=== PATIENT | female | born 1955 | race Caucasian/White ===

== ENCOUNTER → 2017-10-22 | Outpatient (CLI) | payer OTHER ==
[~2017-10-22] MED LIST: CALCIUM 600 +1 EAC1 PO; CELEXA20 MG PO; CENTRUM SILVER1 EAC4 PO; FARXIGA10 MG PO; FLEXERIL PO; FOSAMAX 70 MG T70 MG PO; LIPITOR10 MG PO; MAGNESIUM PO; METFORMIN HCL500 MG PO; MS CONTIN15 MG PO; PERCOCET PO
== END ==
LOC: M.RAD 15:46
DX: Z13.820 Encounter for screening for osteoporosis (principal); M81.0 Age-related osteoporosis without current pathological fracture; Z78.0 Asymptomatic menopausal state

== ENCOUNTER → 2020-12-01 | Outpatient (CLI) | payer OTHER | LOC: M.RAD 15:48 | PROVIDERS: ATTEND Nurse Practitioner Women's Health | DX: M85.88 Other specified disorders of bone density and structure, other site (principal); M81.0 Age-related osteoporosis without current pathological fracture ==

== ENCOUNTER 2020-12-08 12:57 | Inpatient (IN) | payer OTHER, MEDICARE ==
[~2020-12-08] VITALS: Ht 167.6 cm; Wt 107.1 kg
--- NOTE | ~2020-12-08 | EEG ---
[address] [address] EEG STUDY REPORT Name: FRANDY BELLO Room: [address] IN M.R.#: [id number] Admission: 12/08/20 Attend Phys: Mary Lou Fierro MD Discharge: Date of : 51 Report #: [id number] THIS REPORT FOR: cc: Nadiya De Paz MD, Katrina MD ~ Eliceo Bell MD DATE OF SERVICE: 12/13/2020 EEG REPORT This patient is being evaluated for hypoxic encephalopathy. EEG was done by placing the electrode by standard 10-20 system of electrode placement. Both referential and sequential montages were used for recording. The patient's EEG demonstrates burst suppression pattern. Photic stimulation is unremarkable. IMPRESSION: This patient's EEG demonstrate finding consistent with burst suppression pattern. If it is because of hypoxic encephalopathy, that typically indicate a bad prognosis for neurological recovery. One study has questioned that, but that study is not universally accepted. The patient is on sedation and it will be desirable to do another EEG without sedation whenever it can be done. Thank you very much for this referral. By: [id number] [id number] Bell MD /nt
[2020-12-08 13:16] VITALS: BP 124/41
[2020-12-08] MEDS ORDERED: PROLIA60 MG/1 ML SUBQ (13:35)
[2020-12-08] MEDS ORDERED: NAPROSYN500 M1 PO (13:36)
[2020-12-08] MEDS ORDERED: JARDIANCE25 MG PO (13:37)
[2020-12-08] MEDS ORDERED: NEURONTIN 300M300 M2 PO (13:37)
[2020-12-08 13:39] LABS: ABSOLUTE LYMPHOCYTES 0.7 thou/uL (0.8-5.3); HEMATOCRIT 30.3 % (37.0-47.0); HEMOGLOBIN 9.2 gm/dL (12.0-15.0); MCH 21.4 pg (26.0-34.0); RBC 4.29 mil/uL (4.20-5.00)
[2020-12-08 13:41] LABS: ABSOLUTE BASOPHILS 0.1 thou/uL (0.0-0.2); ABSOLUTE EOSINOPHILS 0.1 thou/uL (0.0-0.7); ABSOLUTE MONOCYTES 0.8 thou/uL (0.0-1.2); ABSOLUTE NEUTROPHILS 8.8 thou/uL (1.6-8.1); BASOPHILS 0.7 %; MCHC 30.2 g/dL (28.0-37.0); MCV 70.7 fL (80.0-100.0); MONOCYTES 7.2 %; MPV 6.8 fl. (7.2-11.1); NUCLEATED RBCS 0 /100WBC; PLATELET COUNT* 468 thou/uL (150-400); POLYS 84.1 %; RDW-CV 20.6 % (10.5-14.5); WBC 10.5 thou/uL (4.0-11.0)
[2020-12-08 14:02] LABS: CALCIUM 10.2 mg/dL (8.5-10.1); CREATININE 1.5 mg/dL (0.6-1.3); POTASSIUM 4.6 mmol/L (3.5-5.1)
[2020-12-08 14:07] LABS: ALBUMIN 3.6 g/dL (3.4-5.0); TOTAL BILIRUBIN 0.5 mg/dL (<0.1-1.0); TOTAL PROTEIN 8.3 g/dL (6.4-8.2)
[2020-12-08 14:23] VITALS: BP 136/59
--- NOTE | 2020-12-08 16:17 | EKG ---
[place] [address] ELECTROCARDIOGRAM REPORT Name: FRANDY BELLO Room: [place] [address] ADM IN .R.#: [id number] Admission: 12/08/20 Attend Phys: Mary Lou Fierro MD Discharge: Date of : 51 Date of Service: 12/08/20 1338 Report #: [id number] THIS REPORT FOR: //name// [facility] ED Test Date: 2020-12-08 Test Time: 13:38:06 Pat Name: FRANDY BELLO Department: Room: [facility] Gender: F Concrete Pointer: MIKE : 1955 Requested By: Chilango Rodriguez Order Number: [id number] MD: Alexandre Rice Measurements Intervals [place] Rate: 71 P: 36 [place]: 183 QRS: 9 QRSD: 92 T: 20 QT: 409 QTc: 445 Interpretive Statements Sinus rhythm Low voltage, precordial leads No previous ECG available for comparison Electronically Signed On 12-08-2020 16:17:19 CDT by Alexandre Rice [email or web address] <ELECTRONICALLY SIGNED> By: Alexandre Rice MD, [facility] 12/08/20 1617 1338 1338 Alexandre Rice MD, [facility] /EPI
[2020-12-08 19:03] VITALS: BP 126/50
[2020-12-08 19:30] VITALS: BP 118/47
[2020-12-08 23:51] VITALS: BP 96/56
[2020-12-09 04:27] LABS: HEMOGLOBIN 7.8 gm/dL (12.0-15.0); MCH 21.5 pg (26.0-34.0); MCHC 30.2 g/dL (28.0-37.0); MCV 71.1 fL (80.0-100.0); MPV 6.5 fl. (7.2-11.1); RBC 3.65 mil/uL (4.20-5.00); RDW-CV 20.4 % (10.5-14.5)
[2020-12-09 04:42] VITALS: BP 104/47
[2020-12-09 04:55] LABS: CALCIUM 9.2 mg/dL (8.5-10.1); CREATININE 1.3 mg/dL (0.6-1.3); POTASSIUM 3.8 mmol/L (3.5-5.1)
[2020-12-09 08:00] VITALS: BP 100/47
[2020-12-09 15:22] VITALS: BP 96/31
[2020-12-09 15:24] VITALS: BP 106/44
--- NOTE | 2020-12-09 16:03 | OP ---
[address] [address] OPERATIVE REPORT Name: FRANDY BELLO Room: [address] IN .R.#: [id number] Admission: 12/08/20 Attend Phys: Mary Lou Fierro MD Discharge: Date of : 51 Report #: [id number] THIS REPORT FOR: cc: Nadiya De Paz MD, Katrina MD ~ Tommy Mcgrath DO DATE OF SERVICE: 12/08/2020 PREOPERATIVE DIAGNOSIS: Open bimalleolar fracture of the right ankle with osteoporosis and open medial side of the ankle. POSTOPERATIVE DIAGNOSIS: Bimalleolar fracture of the right ankle with osteoporosis and open medial side of the ankle. SURGERY PERFORMED: Application of [place] external fixator to the right lower extremity and medial side incision, debridement, irrigation of the open fracture site with a temporary pinning of the medial malleolus fragment. SURGEON: Tommy Mcgrath DO LUMBER CHAIN OFFBEARER: Ros Lentz. SECOND COLLEGE DEAN: Ramin Alberts. ANESTHESIA: General. The patient did receive Ancef 2 grams IV piggyback preoperatively in Emergency Room. SPECIMENS: She has no specimens. COMPLICATIONS: None. ESTIMATED BLOOD LOSS: 10 mL. GROSS FINDINGS: Prior to surgery, the patient had a significantly displaced open medial malleolus fracture with the open aspect, was category 2 open fracture. She did demonstrate intraoperatively to show that the fracture would not reduce because of the medial malleolus fracture fragment was totally inverted and rotated 90 degrees. Post-reduction of this fracture fragment, the patient had a good ankle mortise on presentation on the radiographs. SURGERY IN DETAIL: The patient was taken to the operating room and placed on table. We gave her the benefit of general anesthetic. The patient's surgery continued with a Hibiclens scrub and chlorhexidine prep and sterile draping for right lower extremity surgery. A time-out was called and verified by everyone in the room for the right ankle. Surgery began [place] [address] OPERATIVE REPORT Name: BELLOFRANDY Room: [address] IN [facility].#: [id number] Admission: 12/08/20 Attend Phys: Mary Lou Fierro MD Discharge: Date of : 51 Report #: [id number] incision over the medial malleolus open fracture site through skin and subcutaneous tissues, a 10 blade scalpel. That medial malleolus fracture fragment was inverted and rotated as stated above. The periosteum went within the joint as well and held this, and the fracture fragment would not let the ankle reduce. At this point in time, the fracture area was copiously irrigated with normal saline. At this point in time, I did put a temporary stabilizing K-wire pin in this fracture fragment to hold into position now. Secondarily now, I went ahead and placed 2 proximal Schanz pins across the tibia for the external fixator after I made small stab incisions with a 15 blade scalpel, bluntly dissected down to the tibia verifying the pin placement with C-arm on AP and lateral views. Next, I went through the calcaneal pin and made a small medial incision. After I found the appropriate site to place the calcaneal pin, it was drilled across the calcaneus without any difficulty. The Bard 2 pin clamps were now applied and I did take temporarily tightened out the proximal aspect of the Ex-Fix using traction on the leg getting down to the appropriate position. I then tightened all the distal bar to clamp pins. Ex-Fix looked in good position. I did go ahead and tighten all final tightening of all screws and clamps at this stage. I now went ahead and went back to the ankle side and I copiously irrigated one more time prior to closure that periosteum and inverted material along with the capsule was closed with 1 simple stitch of Monocryl to close that open area. Subcutaneous with 2-0 Monocryl with a running 3-0 nylon on the skin. Xeroform, 4 x 4's, Kerlix dressing was applied across the ankle. A small K-wire pin was cut external to the skin and bent, well-padded with Xeroform as well. I did put a kickstand on the Ex-Fix to her calcaneal or heel would not rest upon the bed, giving her sore across that area. One sharp end of the calcaneal pin was cut and then a cap was placed over it. The patient at this time was transferred up and taken to recovery room in stable condition. I attest I was present for all critical aspects of surgery. Needle, instrument, sponge counts correct. <ELECTRONICALLY SIGNED> By: Tommy Mcgrath DO 12/09/20 1603 1724 1809Tommy Mcgrath DO /evita
[2020-12-09 20:00] VITALS: BP 109/45
[2020-12-09 23:35] VITALS: BP 128/59
[2020-12-10 02:06] LABS: GLYCOHEMOGLOBIN (HGB A1C) 7.6 % (4.8-5.6)
[2020-12-10 04:00] VITALS: BP 114/42
[2020-12-10 04:24] LABS: HEMATOCRIT 25.3 % (37.0-47.0); HEMOGLOBIN 7.6 gm/dL (12.0-15.0); MCH 21.4 pg (26.0-34.0); MCHC 29.9 g/dL (28.0-37.0); MCV 71.4 fL (80.0-100.0); MPV 6.1 fl. (7.2-11.1); RBC 3.55 mil/uL (4.20-5.00); RDW-CV 20.8 % (10.5-14.5); WBC 8.2 thou/uL (4.0-11.0)
[2020-12-10 04:39] LABS: CALCIUM 8.7 mg/dL (8.5-10.1); CREATININE 1.7 mg/dL (0.6-1.3); POTASSIUM 4.4 mmol/L (3.5-5.1)
[2020-12-10 06:16] LABS: URINE BILIRUBIN NEGATIVE (Negative); URINE BLOOD 3+ (Negative); URINE CLARITY CLEAR; URINE COLOR YELLOW; URINE GLUCOSE-RANDOM 3+ (Negative); URINE KETONES NEGATIVE (Negative); URINE LEUKOCYTES-REFLEX 1+ (Negative); URINE NITRITE-REFLEX NEGATIVE (Negative); URINE PROTEIN TRACE (Negative); URINE SPECIFIC GRAVITY 1.015 (1.005-1.030); URINE UROBILINOGEN 0.2 E.U./dl (0.2-1.0)
[2020-12-10 08:05] VITALS: BP 121/49
[2020-12-10 08:41] LABS: BACTERIA-REFLEX 1-9 Few /HPF (None Seen); CASTS None Seen /LPF (None Seen); CRYSTALS None Seen /LPF (None Seen); MUCUS None Seen strn/LPF (None Seen); SQUAMOUS 4-10 Moderate /LPF (0-3); URINE RBC >20 Many /HPF (0-2); URINE WBC-REFLEX 6-15 Few /HPF (0-5)
[2020-12-10 16:00] VITALS: BP 98/34
[2020-12-10 16:34] VITALS: BP 121/49
[2020-12-10 20:44] VITALS: BP 113/43
[2020-12-11] VITALS (86 sets, daily range): BP systolic 66–193; BP diastolic 26–101
[2020-12-11 04:52] LABS: HEMATOCRIT 27.7 % (37.0-47.0); HEMOGLOBIN 8.4 gm/dL (12.0-15.0); MCH 21.6 pg (26.0-34.0); MCHC 30.2 g/dL (28.0-37.0); MCV 71.4 fL (80.0-100.0); MPV 6.4 fl. (7.2-11.1); RBC 3.89 mil/uL (4.20-5.00); RDW-CV 21.2 % (10.5-14.5); WBC 10.3 thou/uL (4.0-11.0)
[2020-12-11 04:55] LABS: CALCIUM 9.1 mg/dL (8.5-10.1); CREATININE 1.3 mg/dL (0.6-1.3); POTASSIUM 4.6 mmol/L (3.5-5.1)
[2020-12-11 14:27] LABS: CREATININE 1.6 mg/dL (0.6-1.3); POTASSIUM 4.1 mmol/L (3.5-5.1)
[2020-12-11 14:31] LABS: APTT 24.8 Seconds (25.0-31.3); INR 1.3; PROTIME 13.9 Seconds (9.20-11.50)
[2020-12-11 15:28] LABS: BE -2.5 mmol/L (-2 to +3); PCO2 37.3 mmHg (35.0-45.0)
[2020-12-11 15:30] LABS: PO2 203.1 mmHg (75.0-100.0)
[2020-12-11 17:00] LABS: HEMATOCRIT 27.3 % (37.0-47.0); HEMOGLOBIN 8.1 gm/dL (12.0-15.0); MCH 21.1 pg (26.0-34.0); MCHC 29.6 g/dL (28.0-37.0); MCV 71.1 fL (80.0-100.0); MPV 6.4 fl. (7.2-11.1); NUCLEATED RBCS 0 /100WBC; PLATELET COUNT* 402 thou/uL (150-400); RBC 3.84 mil/uL (4.20-5.00); RDW-CV 21.1 % (10.5-14.5); WBC 11.5 thou/uL (4.0-11.0)
[2020-12-11 17:10] LABS: INR 1.3; PROTIME 13.9 Seconds (9.20-11.50)
[2020-12-11 17:35] LABS: CALCIUM 9.9 mg/dL (8.5-10.1); CREATININE 1.3 mg/dL (0.6-1.3); PHOSPHORUS* 2.3 mg/dL (2.5-4.9); POTASSIUM 4.4 mmol/L (3.5-5.1)
[2020-12-11 17:38] LABS: ABSOLUTE EOSINOPHILS 0.1 thou/uL (0.0-0.7); ABSOLUTE LYMPHOCYTES 0.3 thou/uL (0.8-5.3); ABSOLUTE MONOCYTES 0.7 thou/uL (0.0-1.2); ABSOLUTE NEUTROPHILS 10.4 thou/uL (1.6-8.1); PLATELET ESTIMATE INCREASED
[2020-12-11 17:40] LABS: ANISOCYTOSIS 2+; HYPOCHROMASIA 2+; MICROCYTES 2+; POLYCHROMASIA Occasional
[2020-12-11 22:49] LABS: ABSOLUTE EOSINOPHILS 0.1 thou/uL (0.0-0.7); ABSOLUTE LYMPHOCYTES 0.8 thou/uL (0.8-5.3); ABSOLUTE MONOCYTES 1.1 thou/uL (0.0-1.2); ABSOLUTE NEUTROPHILS 12.2 thou/uL (1.6-8.1); BASOPHILS 0.1 %; EOSINOPHILS 0.5 %; HEMATOCRIT 29.7 % (37.0-47.0); HEMOGLOBIN 8.8 gm/dL (12.0-15.0); LYMPHOCYTES 5.5 %; MCH 21.1 pg (26.0-34.0); MCHC 29.6 g/dL (28.0-37.0); MCV 71.4 fL (80.0-100.0); MONOCYTES 7.7 %; MPV 6.3 fl. (7.2-11.1); NUCLEATED RBCS 0 /100WBC; POLYS 86.2 %; RBC 4.15 mil/uL (4.20-5.00); RDW-CV 21.1 % (10.5-14.5); WBC 14.1 thou/uL (4.0-11.0)
[2020-12-11 22:50] LABS: PLATELET COUNT* 485 thou/uL (150-400)
[2020-12-11 23:08] LABS: APTT 29.1 Seconds (25.0-31.3); INR 1.3; PROTIME 13.6 Seconds (9.20-11.50)
[2020-12-11 23:09] LABS: CALCIUM 9.2 mg/dL (8.5-10.1); CK-MB MASS 8.9 ng/mL (<0.5-3.6); CREATININE 1.2 mg/dL (0.6-1.3); MAGNESIUM 1.8 mg/dL (1.8-2.4); PHOSPHORUS* 2.9 mg/dL (2.5-4.9); POTASSIUM 4.6 mmol/L (3.5-5.1); TROPONIN-I LEVEL 0.58 ng/mL (<0.06)
[2020-12-12] VITALS (72 sets, daily range): BP systolic 52–186; BP diastolic 25–85
[2020-12-12 01:29] LABS: ANTI-Xa-UNFRACTIONATED HEP 7.459; BE -5.4 mmol/L (-2 to +3); pH 7.397 (7.340-7.450)
[2020-12-12 01:33] LABS: PO2 133.7 mmHg (75.0-100.0)
[2020-12-12 04:34] LABS: ABSOLUTE EOSINOPHILS 0.1 thou/uL (0.0-0.7); ABSOLUTE LYMPHOCYTES 0.5 thou/uL (0.8-5.3); ABSOLUTE MONOCYTES 0.7 thou/uL (0.0-1.2); ABSOLUTE NEUTROPHILS 9.1 thou/uL (1.6-8.1); BASOPHILS 0.3 %; EOSINOPHILS 0.7 %; HEMOGLOBIN 8.2 gm/dL (12.0-15.0); LYMPHOCYTES 5.2 %; MCH 21.3 pg (26.0-34.0); MCHC 30.5 g/dL (28.0-37.0); MCV 69.8 fL (80.0-100.0); MONOCYTES 6.7 %; MPV 6.2 fl. (7.2-11.1); NUCLEATED RBCS 0 /100WBC; POLYS 87.1 %; RBC 3.87 mil/uL (4.20-5.00); RDW-CV 21.1 % (10.5-14.5); WBC 10.4 thou/uL (4.0-11.0)
[2020-12-12 04:41] LABS: PLATELET COUNT* 406 thou/uL (150-400)
[2020-12-12 04:49] LABS: APTT 29.1 Seconds (25.0-31.3); INR 1.4; PROTIME 14.5 Seconds (9.20-11.50)
[2020-12-12 05:01] LABS: CREATININE 0.9 mg/dL (0.6-1.3); MAGNESIUM 1.6 mg/dL (1.8-2.4); PHOSPHORUS* 1.3 mg/dL (2.5-4.9)
[2020-12-12 05:03] LABS: POTASSIUM 3.4 mmol/L (3.5-5.1)
[2020-12-12 05:35] LABS: ANTI-Xa-UNFRACTIONATED HEP 7.555; BE -4.8 mmol/L (-2 to +3); pH 7.497 (7.340-7.450)
[2020-12-12 10:24] LABS: BE -5.6 mmol/L (-2 to +3); PCO2 40.7 mmHg (35.0-45.0); PO2 106.1 mmHg (75.0-100.0); pH 7.314 (7.340-7.450)
[2020-12-12 11:03] LABS: HEMOGLOBIN 7.7 gm/dL (12.0-15.0); MCHC 29.5 g/dL (28.0-37.0); MCV 71.2 fL (80.0-100.0); MPV 6.3 fl. (7.2-11.1); NUCLEATED RBCS 0 /100WBC; PLATELET COUNT* 364 thou/uL (150-400); RBC 3.65 mil/uL (4.20-5.00); RDW-CV 21.2 % (10.5-14.5); WBC 8.6 thou/uL (4.0-11.0)
[2020-12-12 11:09] LABS: CALCIUM 8.5 mg/dL (8.5-10.1); CREATININE 0.9 mg/dL (0.6-1.3); POTASSIUM 3.4 mmol/L (3.5-5.1)
[2020-12-12 11:16] LABS: APTT 28.4 Seconds (25.0-31.3); INR 1.3; PROTIME 13.7 Seconds (9.20-11.50)
[2020-12-12 11:21] LABS: MAGNESIUM 2.1 mg/dL (1.8-2.4); PHOSPHORUS* 2.4 mg/dL (2.5-4.9)
[2020-12-12 11:34] LABS: ABSOLUTE EOSINOPHILS 0.1 thou/uL (0.0-0.7); ABSOLUTE LYMPHOCYTES 0.1 thou/uL (0.8-5.3); ABSOLUTE MONOCYTES 0.5 thou/uL (0.0-1.2); ABSOLUTE NEUTROPHILS 7.9 thou/uL (1.6-8.1); METAMYELOCYTES 1 %
[2020-12-12 11:35] LABS: ANISOCYTOSIS 2+; HYPOCHROMASIA 2+; MICROCYTES 1+
[2020-12-12 11:36] LABS: PLATELET ESTIMATE ADEQUATE; POLYCHROMASIA Occasional
[2020-12-12 18:04] LABS: ABSOLUTE EOSINOPHILS 0.1 thou/uL (0.0-0.7); ABSOLUTE LYMPHOCYTES 0.4 thou/uL (0.8-5.3); ABSOLUTE MONOCYTES 0.6 thou/uL (0.0-1.2); BASOPHILS 0.3 %; EOSINOPHILS 1.7 %; HEMATOCRIT 23.6 % (37.0-47.0); HEMOGLOBIN 7.2 gm/dL (12.0-15.0); LYMPHOCYTES 4.7 %; MCH 21.6 pg (26.0-34.0); MCHC 30.5 g/dL (28.0-37.0); MONOCYTES 7.2 %; MPV 6.2 fl. (7.2-11.1); NUCLEATED RBCS 0 /100WBC; PLATELET COUNT* 298 thou/uL (150-400); POLYS 86.1 %; RBC 3.33 mil/uL (4.20-5.00); RDW-CV 20.8 % (10.5-14.5); WBC 8.2 thou/uL (4.0-11.0)
[2020-12-12 18:17] LABS: CALCIUM 7.9 mg/dL (8.5-10.1); CREATININE 0.9 mg/dL (0.6-1.3); MAGNESIUM 1.6 mg/dL (1.8-2.4); PHOSPHORUS* 2.4 mg/dL (2.5-4.9); POTASSIUM 3.9 mmol/L (3.5-5.1)
[2020-12-12 18:22] LABS: APTT 28.2 Seconds (25.0-31.3); INR 1.3; PROTIME 13.4 Seconds (9.20-11.50)
[2020-12-13] VITALS (73 sets, daily range): BP systolic 38–147; BP diastolic 28–68
[2020-12-13 04:35] LABS: ABSOLUTE EOSINOPHILS 0.3 thou/uL (0.0-0.7); ABSOLUTE LYMPHOCYTES 0.4 thou/uL (0.8-5.3); ABSOLUTE MONOCYTES 0.7 thou/uL (0.0-1.2); ABSOLUTE NEUTROPHILS 8.3 thou/uL (1.6-8.1); BASOPHILS 0.3 %; EOSINOPHILS 2.9 %; HEMOGLOBIN 7.6 gm/dL (12.0-15.0); LYMPHOCYTES 4.2 %; MCH 21.5 pg (26.0-34.0); MCHC 30.3 g/dL (28.0-37.0); MONOCYTES 6.8 %; MPV 6.1 fl. (7.2-11.1); NUCLEATED RBCS 0 /100WBC; POLYS 85.8 %; RBC 3.53 mil/uL (4.20-5.00); RDW-CV 21.3 % (10.5-14.5); WBC 9.7 thou/uL (4.0-11.0)
[2020-12-13 04:36] LABS: PLATELET COUNT* 375 thou/uL (150-400)
[2020-12-13 04:48] LABS: APTT 28.3 Seconds (25.0-31.3); CALCIUM 8.4 mg/dL (8.5-10.1); CREATININE 0.7 mg/dL (0.6-1.3); INR 1.2; MAGNESIUM 1.7 mg/dL (1.8-2.4); PHOSPHORUS* 1.8 mg/dL (2.5-4.9); POTASSIUM 3.8 mmol/L (3.5-5.1)
--- NOTE | 2020-12-13 17:05 | 2DMMODE ---
[place] [address] 2 D/M-MODE ECHOCARDIOGRAM Name: FRANDY BELLO Room: [address] ADM IN M.R.#: [id number] Admission: 12/08/20 Attend Phys: Mary Lou Fierro MD Discharge: Date of : 51 Date of Service: 12/13/20 1704 Report #: [id number] THIS REPORT FOR: cc: Nadiya De Paz MD, Katrina MD Blick,Stephen Fragoso MD [facility] ~ APPROVED REPORT Study performed: 12/13/2020 14:18:11 EXAM: Comprehensive 2D, Doppler, and color-flow Echocardiogram Patient Location: Bedside BSA: 2.12 HR: 82 bpm BP: 137/56 mmHg Other Information Study Quality: Technically Limited Technically limited study due to inability to position patient. Indications Dyspnea 2D Dimensions IVSd: 13.39 (7-11mm) LVOT Diam: 19.47 (18-24mm) LVDd: 48.17 mm PWd: 10.62 (7-11mm) Ascending Ao: 29.82 (22-36mm) LVDs: 31.98 (25-40mm) Aortic Root: 31.89 mm Volumes Left Atrial Volume (Systole) LA ESV Index: 28.00 mL/m2 Aortic Valve AoV Peak Roldan.: 1.32 m/s AO Peak Gr.: 6.97 mmHg LVOT Max P.36 mmHg AO Mean Gr.: 3.88 mmHg LVOT Mean P.52 mmHg LVOT Max V: 0.92 m/s AO V2 VTI: 25.06 cm LVOT Mean V: 0.56 m/s YAMILE (VTI): 2.25 cm2 LVOT V1 VTI: 18.94 [place] [address] 2 D/M-MODE ECHOCARDIOGRAM Name: FRANDY BELLO Room: [address] IN ..#: [id number] Admission: 12/08/20 Attend Phys: Mary Lou Fierro MD Discharge: Date of : 51 Date of Service: 12/13/20 1704 Report #: [id number] Mitral Valve E/A Ratio: 0.93 MV Decel. Time: 256.92 ms MV E Max Roldan.: 0.92 m/s MV PHT: 74.51 ms MVA (PHT): 2.95 cm2 TDI E/Lateral E': 9.20 E/Medial E': 11.50 Medial E' Roldan.: 0.08 m/s Lateral E' Roldan.: 0.10 m/s Pulmonary Valve PV Peak Roldan.: 1.33 m/s PV Peak Gr.: 7.10 mmHg Tricuspid Valve RAP Estimate: 5.00 mmHg TR Peak Gr.: 47.74 mmHg RVSP: 52.74 mmHg PA Pressure: 52.74 mmHg Left Ventricle The left ventricle is normal size. endocardium was not well visualized There is normal left ventricular wall thickness. Left ventricular systolic function is normal. The left ventricular ejection fraction is within the normal range. Right Ventricle The right ventricle is normal size. The right ventricular systolic function is normal. Atria The left atrium size is normal. Interatrial septum not well visualized. The right atrium size is normal. Aortic Valve The aortic valve is normal in structure. No aortic regurgitation is present. There is no aortic valvular stenosis. Mitral Valve The mitral valve is normal in structure. Mild mitral regurgitation. No evidence of mitral valve stenosis. Tricuspid Valve Tricuspid valve is not well visualized. Mild tricuspid regurgitation. estimated pa [id number] 55 [place] [address] 2 D/M-MODE ECHOCARDIOGRAM Name: BELLO,FRANDY WILKERSON Room: [address] [facility]#: [id number] Admission: 12/08/20 Attend Phys: Mary Lou Fierro MD Discharge: Date of : 51 Date of Service: 12/13/20 1704 Report #: [id number] Pulmonic Valve Pulmonic valve is not well visualized. There is no pulmonic valvular regurgitation. Great Vessels The aortic root is normal in size. IVC is not well visualized. Pericardium There is no pericardial effusion. <Conclusion> Left ventricular systolic function is normal. The left ventricular ejection fraction is within the normal range. Mild mitral regurgitation. Mild tricuspid regurgitation. estimated pa [id number] 55 mm Hg <ELECTRONICALLY SIGNED> By: Stephen Toledo MD, FACC 12/13/20 1704 03 03 Stephen Toledo MD, FACC /INF
== END 2020-12-13 21:45 | DRG 492 ==
LOC: M.ERS 12:57 → M.ORTHSURG 14:03 → M.TBA-ER 14:03 → M.ICU 14:03 → M.ORTHSURG 18:36 → M.ICU 12-11 12:58
PROVIDERS: Pediatrics; Physician Assistant; ADMIT Family Medicine; ATTEND Family Medicine
PROC: 0QHG05Z Insertion of External Fixation Device into Right Tibia, Open Approach (ICD-10-PCS; 2020-12-08)
PROC: 0QSG04Z Reposition Right Tibia with Internal Fixation Device, Open Approach (ICD-10-PCS; 2020-12-08)
PROC: B548ZZA Ultrasonography of Superior Vena Cava, Guidance (ICD-10-PCS; principal; 2020-12-11)
PROC: 03HY32Z Insertion of Monitoring Device into Upper Artery, Percutaneous Approach (ICD-10-PCS; principal; 2020-12-11)
PROC: 5A1945Z Respiratory Ventilation, 24-96 Consecutive Hours (ICD-10-PCS; principal; 2020-12-11)
PROC: 0BCM8ZZ Extirpation of Matter from Bilateral Lungs, Via Natural or Artificial Opening Endoscopic (ICD-10-PCS; principal; 2020-12-11)
PROC: 0BH17EZ Insertion of Endotracheal Airway into Trachea, Via Natural or Artificial Opening (ICD-10-PCS; principal; 2020-12-11)
PROC: 4A133J1 Monitoring of Arterial Pulse, Peripheral, Percutaneous Approach (ICD-10-PCS; principal; 2020-12-11)
PROC: 02HV33Z Insertion of Infusion Device into Superior Vena Cava, Percutaneous Approach (ICD-10-PCS; principal; 2020-12-11)
PROC: 4A133B1 Monitoring of Arterial Pressure, Peripheral, Percutaneous Approach (ICD-10-PCS; principal; 2020-12-11)
DX: M80.071A Age-related osteoporosis with current pathological fracture, right ankle and foot, initial encounter for fracture (principal); N17.0 Acute kidney failure with tubular necrosis; J96.01 Acute respiratory failure with hypoxia; J69.0 Pneumonitis due to inhalation of food and vomit; D62 Acute posthemorrhagic anemia; G93.1 Anoxic brain damage, not elsewhere classified; T17.820A Food in other parts of respiratory tract causing asphyxiation, initial encounter; I95.9 Hypotension, unspecified; E11.9 Type 2 diabetes mellitus without complications; E66.9 Obesity, unspecified; I10 Essential (primary) hypertension; Z51.5 Encounter for palliative care; Z20.822 Contact with and (suspected) exposure to COVID-19; Z90.710 Acquired absence of both cervix and uterus; Z68.38 Body mass index [BMI] 38.0-38.9, adult; Z79.899 Other long term (current) drug therapy; Z88.5 Allergy status to narcotic agent; X58.XXXA Exposure to other specified factors, initial encounter; Y93.89 Activity, other specified; Y92.238 Other place in hospital as the place of occurrence of the external cause